=== PATIENT | female | born 1960 | race Caucasian/White ===

== ENCOUNTER 2019-09-27 10:05 | Inpatient (IN) | payer OTHER ==
[~2019-09-27] VITALS: Ht 172.7 cm; Wt 70.2 kg
[~2019-09-27 10:05] MED LIST: HTN MED; HYDCHL25 PO; LEVFLO500 PO; LEVSOD25; OSEL75CA PO; PARO10; PRED10 PO; Prinivil5 MG PO; Ventolin Soln3 ML INH
[2019-09-27 10:58] LABS: BASOPHILS ABSOLUTE AUTO 0.06 K/mm3 (0.00-0.23); BASOPHILS PERCENT AUTO 1 % (0-2); EOSINOPHILS PERCENT AUTO 0 % (0-6); Hematocrit 35.6 % (33.0-51.0); Hemoglobin 11.2 g/dL (11.5-16.0); IMMATURE GRAN ABSOLUTE AUTO 0.11 K/mm3 (0.00-0.10); IMMATURE GRAN PERCENT AUTO 1 % (0-1); LYMPHOCYTES ABSOLUTE AUTO 1.18 K/mm3 (0.84-5.20); LYMPHOCYTES PERCENT AUTO 9 % (21-46); MONOCYTES ABSOLUTE AUTO 0.51 K/mm3 (0.16-1.47); MONOCYTES PERCENT AUTO 4 % (4-13); Mean Corpuscular HGB 27.2 pg (26.0-34.0); Mean Corpuscular HGB Conc 31.5 g/dL (31.5-36.5); Mean Corpuscular Volume 86 fL (80-100); Mean Platelet Volume 9.6 fL (9.1-12.4); NEUTROPHILS ABSOLUTE AUTO 11.14 K/mm3 (1.96-9.15); NEUTROPHILS PERCENT AUTO 86 % (41-73); Platelet Count 192 K/mm3 (150-400); RDW Coefficient Variation 14.6 % (11.7-14.2); RDW Standard Deviation 46.1 fL (35.1-46.3); Red Blood Cell Count 4.12 M/mm3 (3.80-5.20)
[2019-09-27 11:35] LABS: Alanine Aminotransfer (ALT/SGP 28 U/L (12-78); Albumin/Globulin Ratio 0.4 (0.8-1.8); Alk Phos 88 U/L (50-136); Anion Gap 9 mmol/L (6-16); Aspartate Aminotrans (AST/SGOT 41 U/L (12-37); Bilirubin, Total 0.9 mg/dL (0.1-1.0); Blood Urea Nitrogen 14 mg/dL (8-24); Bun/Creatinine Ratio 17.7 (12.0-20.0); CO2, Blood 24 mmol/L (21-32); Calcium, Blood 8.1 mg/dL (8.5-10.1); Chloride, Blood 98 mmol/L (98-108); Creatinine, Blood 0.79 mg/dL (0.40-1.00); Globulin, Blood 5.1 g/dL (2.2-4.0); Glomerular Filtration Rate >60 (60-); Glucose, Blood 117 mg/dL (70-99); Potassium, Blood 3.5 mmol/L (3.5-5.5); Sodium, Blood 131 mmol/L (136-145); Total Protein, Blood 7.1 g/dL (6.4-8.2)
[2019-09-27 12:02] LABS: Free Thyroxine 1.5 ng/dL (0.70-1.60)
[2019-09-27 12:04] LABS: Thyroid Stimulating Hormone 1.31 uIU/mL (0.360-4.800)
[2019-09-27 16:46] LABS: Influenza A Negative (NEGATIVE); Influenza B Negative (NEGATIVE)
[2019-09-27] MEDS ORDERED: FLUT1DIS8 INH (17:00)
[2019-09-27] MEDS ORDERED: MONT10T PO (17:01)
[2019-09-27] MEDS ORDERED: Lisinopril-Hct1 EAC4 PO (17:01)
[2019-09-27] MEDS ORDERED: PARO20 PO (17:01)
[2019-09-27] MEDS ORDERED: EUTHYROX125 MCG PO (17:01)
[2019-09-27] MEDS ORDERED: ALPR1 PO (17:02)
[2019-09-27 17:03] LABS: Source, Urine Clean Catch
[2019-09-27] MEDS ORDERED: DULO60 PO (17:03)
[2019-09-27] MEDS ORDERED: ALBU90OI INH (17:04)
[2019-09-27 17:05] LABS: Bilirubin, Urine Neg (Neg); Blood, Urine 4+ (Neg); Glucose Qualitative, Urine Neg (Neg); Ketones, Urine 2+ (Neg); Leukocyte Esterase, Urine 1+ (Neg); Nitrite, Urine Neg (Neg); Protein, Urine 2+ (Neg); Urobilinogen, Urine 1+ (Normal)
[2019-09-27 17:25] LABS: Appearance, Urine Hazy (Clear); Color, Urine Yellow (P-Yellow)
[2019-09-27 17:27] LABS: Amorphous Light (0-Heavy); Bacteria Mod /hpf; Red Blood Cells, Urine 0-2 /hpf (0-2); Squamous Epithelial Cells Few /hpf (Few)
[2019-09-27 17:28] LABS: Granular Casts Rare /lpf (0)
[2019-09-27 19:40] LABS: PCO2 Arterial 45.5 mmHg (35-45); PO2 Arterial 97.7 mmHg (80-100); pH Blood Arterial 7.17 (7.35-7.45)
[2019-09-27 20:22] LABS: U Amphetamine Screen Not Detected; U Barbituate Screen Not Detected; U Benzodiazapine Screen Not Detected; U Buprenorphine Screen Not Detected; U Cannabinoids Screen DETECTED; U Cocaine Screen Not Detected; U Methadone Screen Not Detected; U Methamphetamine Screen Not Detected; U Opiates Screen Not Detected; U Oxycodone Screen Not Detected; U Propoxyphene Screen Not Detected
[2019-09-27 20:36] LABS: Ethanol (Alcohol), Blood, Med <3 mg/dL
[2019-09-27 20:40] LABS: Source, Urine Catheter
[2019-09-27 20:44] LABS: Bilirubin, Urine Neg (Neg); Blood, Urine 4+ (Neg); Glucose Qualitative, Urine Neg (Neg); Ketones, Urine Neg (Neg); Leukocyte Esterase, Urine Neg (Neg); Nitrite, Urine Neg (Neg); Protein, Urine 3+ (Neg); Urobilinogen, Urine NORM (Normal)
[2019-09-27 20:47] LABS: Appearance, Urine Hazy (Clear); Color, Urine Yellow (P-Yellow)
[2019-09-27 20:48] LABS: Troponin I 0.727 ng/mL (0.000-0.040)
[2019-09-27 20:52] LABS: Red Blood Cells, Urine 0-2 /hpf (0-2); White Blood Cells, Urine 0-2 /hpf (0-5)
[2019-09-27 20:53] LABS: Amorphous Mod (0-Heavy); Bacteria Few /hpf; Squamous Epithelial Cells Few /hpf (Few)
--- NOTE | 2019-09-27 20:53 | NUR ---
ASSUMED CARE NOTE: ASSUMED CARE OF PT @ 2350, RECEVIED REPORT FROM ER NURSE DOMI. PT ARRIVED TO THE UNIT VIA STRETCHER, PT WAS TRANSFERED TO [facility] BED VIA SLIDER WITH THE HELP OF 4 STAFF MEMBERS. PT CONNECTED TO HEART MONITOR, HR IN THE 140'S. PT READING SINUS TACH. 90/50 FOR BLOOD PRESSURE. PT WAS ALERT AND ORIENTED. RT AT BEDSIDE, PATIENT ON BIPAP, SPO2 ABOVE 90%. PT LUNG SOUNDS DIMINISHED T/O. PT DENIES ANY SOB/PAIN AT THIS TIME. PT ALSO DENIES NAUSEA. NEGRETE DRAINING CLEAR YELLOW URINE. STRONG BILAT UPPER EXTREMITY PULSES. WEAK BILAT PEDAL PULSES FELT. AT BEDSIDE.
--- NOTE | 2019-09-27 21:00 | NUR ---
UPDATE: AT BEDSIDE. ORDERS GIVEN TO START LEVO PERIPHERAL IV. HR IN THE 140'S, AFTER 5 MINTUES LEVO DISCONTINUED DUE TO HR ELEVATING INTO THE 170'S. NEOSYNEPHRINE INITIATED AT 50MCG PER ILA ORDERS
--- NOTE | 2019-09-28 01:48 | NUR ---
UPDATE: 2206: NEOSYNEPHRINE TITRATED UP TO 100 MCG/MIN PER ORDERS. LOWERING BP. HEART RATE INTO THE 180'S. AT BED SIDE. ILA PERFORMED VAGUAL MANUVERS IN ATTEMPT TO LOWER HR. UNSUCCESSFUL. DR. THORPE ALSO PERFORMED CAROTID MASSAGE, ALSO UNSUCCESSFUL. DEFRIBRILLATOR PADS PLACED, CRASH CART IN ROOM. ORDERS FOR AMIODERONE DRIP GIVEN 2219: 150J CARDIOVERSION SHOCK DELIVERED, RATE LOWERED TO 150. RATE SLOWLY CLIMBING BACK UP. 2221: BP 84/33, HR 190. 200J CARDIOVERSION SHOCK ADMINISTERED. POST HR : 200 222: VERBAL ORDER BY TO PUSH ADENOSINE (6MG). HR AT THIS TIME 174, POST MEDICATION 190. 2224: DR. THORPE ORDERED NEOSYNEPHRINE TO BE INCREASED TO 150MCG/MIN, DUE TO BP OF 78/33 2228: HR 195. DR. THORPE ON THE PHONE WITH VERGILLIO. NEOSYNEPHRINE DRIP INCREASED TO 200MCG/MIN 2231: 5MG IV, OF METROPROLOL GIVEN. BP 87/45, HR 190. HR DECREASED TO 150 BPM AFTER MEDICATION. 2236: 50MCG BOLUS OF NEOSYNEPHRINE IV WAS GIVEN PER ORDER OF . 80/30. 2244: BP 64/35, HR 135. PLACING CENTRAL LINE. BILAT SOFT WRIST RESTRAINT PLACED DUE TO PATIENT MOVING DURING PROCEDURE AND TO PREVENT INJURY. [id number]: BP 59/33, MAP OF 39, HR 132. CENTRAL LINE GUIDE WIRE OUT OF RIGHT GRION. ALL LINES FLUSHED. LEVOPHED PLACED ON CENTRAL LINE LUMEN. LEVOPHED RUNNING @ 10MCG/MIN. PT PALE AND DIAPHORETIC. ELEVATED TEMP 101.3. PT IS NOT ABLE TO ANSWER QUESTIONS. IS ATTEMPTING TO ROLL OUT OF BED. NEOSYNEPHRINE INCREASED TO 300MCG/MIN PER ORDERS 2253: 53/36 (48) HR 135. LEVOPHED INCREASED TO 30MCG/MIN. SETTING UP FOR ART LINE. [id number]: ARTERIAL LINE TO LEFT GRION. BP 88/31. NEOSYNEPHRINE TITRATED TO 300MCG/MIN PER ORDERED. PT'S RR AT 40, LABORED BREATHING. IS CONCERNED OF AIRWAY. RT CALLED TO ROOM FOR INTUBATION. [id number]. RT IN ROOM. VERSED 4MG AND 20MG OF ETOMIDATE GIVEN VIA IV, FOR INTUBATION. 200 OF NEOSYNEPHRIN GIVEN IV IN DOSES OF 100MCG BY CHARGE NURSE KARLO, PER ORDER. PT SEDATED. TUBE IN 7.5, 24 @ THE LIP. OG TUBE PALCED. STAT XRAY CALLED. 2355: NO ACTIVITY SEEN IN ART-LINE. NO PULSE FELT. BILAT SOFT WRIST RESTRAINTS OFF. CODE-BLUE INITIATED. COMPRESSION STARTED. SEE CODE BLUE SHEET. 2222: BLOOD PRESSURE 84/33,
== END 2019-09-28 00:22 | DRG 871 ==
LOC: ER 10:05 → ICUE 16:25 → ERHOLD 16:25 → ICUE 20:45
PROVIDERS: Emergency Medicine; Internal Medicine Critical Care Medicine; ADMIT Internal Medicine
PROC: 0BH17EZ Insertion of Endotracheal Airway into Trachea, Via Natural or Artificial Opening (ICD-10-PCS; principal; 2019-09-27)
PROC: 5A1935Z Respiratory Ventilation, Less than 24 Consecutive Hours (ICD-10-PCS; 2019-09-27)
PROC: 02HV33Z Insertion of Infusion Device into Superior Vena Cava, Percutaneous Approach (ICD-10-PCS; 2019-09-27)
PROC: 3E033XZ Introduction of Vasopressor into Peripheral Vein, Percutaneous Approach (ICD-10-PCS; 2019-09-27)
DX: A41.9 Sepsis, unspecified organism (principal); R65.21 Severe sepsis with septic shock; J96.01 Acute respiratory failure with hypoxia; I21.9 Acute myocardial infarction, unspecified; I42.0 Dilated cardiomyopathy; J45.901 Unspecified asthma with (acute) exacerbation; E87.1 Hypo-osmolality and hyponatremia; E03.9 Hypothyroidism, unspecified; I46.9 Cardiac arrest, cause unspecified; I10 Essential (primary) hypertension; E78.5 Hyperlipidemia, unspecified; F41.8 Other specified anxiety disorders
CPT/HCPCS: 31500; 36415; 36556; 36600; 36620; 51702; 71045; 71260; 74177; 80053; 81001; 82803; 83605; 83690; 83735; 83880; 84439; 84443; 84484; 85025; 85379; 87040; 87086; 87804; 92950; 93005; 93010; 94002; 94644; 94660; 96361-59; 96365-59; 96375-59; 96376-59; 99291-25; 99292; C1751; C9113; G0480; J0153; J0282; J0456; J0696; J1720; J1940; J2060; J2250; J2270; J2370; J2405; J7030; J7040; J7050; J7060; Q9967